=== PATIENT | male | born 1940 | race Caucasian/White ===

== ENCOUNTER 2022-05-30 14:36 | Outpatient (CLI) | payer OTHER, SELFPAY ==
[2022-05-30 22:14] LABS: Vitamin D 25 Hydroxy* 22 ng/mL (30-80)
[2022-06-01 12:20] LABS: Rheumatoid Factor <10 IU/mL (0-14)
== END 2022-05-30 14:37 | disposition home or self-care (01) ==
PROVIDERS: PCP Family Medicine; Visit Provider Physician Assistant Medical
DX: M25.449 Effusion, unspecified hand (principal)
CPT/HCPCS: 82306; 84443; 84550; 86200; 86431; 86618

== ENCOUNTER 2024-01-16 15:40 | Outpatient (CLI) | payer MEDICARE, SELFPAY | END 2024-01-16 15:41 | disposition home or self-care (01) | LOC: NFLDREF 02-05 10:02 | PROVIDERS: PCP Physician Assistant Medical; Referring Provider Physician Assistant Medical; Visit Provider Physician Assistant Medical | DX: Z00.00 Encounter for general adult medical examination without abnormal findings (principal); M10.9 Gout, unspecified; K21.9 Gastro-esophageal reflux disease without esophagitis; R79.89 Other specified abnormal findings of blood chemistry; R97.20 Elevated prostate specific antigen [PSA]; Z12.5 Encounter for screening for malignant neoplasm of prostate; Z13.6 Encounter for screening for cardiovascular disorders; Z13.29 Encounter for screening for other suspected endocrine disorder | CPT/HCPCS: 80053; 80061; 84443; 84550; G0103 ==